=== PATIENT | male | born 1965 | race Caucasian/White ===

== ENCOUNTER → 2021-02-16 16:57 | Outpatient (CLI) | payer BC, SELFPAY ==
--- NOTE | 2021-02-16 17:00 | DI.RAD.S_ITS ---
PROCEDURE: XR FINGER LT MIN 2V INDICATIONS: Injury to left finger TECHNIQUE: AP hand, 2 views of the left 4th finger(s) acquired. COMPARISON: None. FINDINGS: Bones: No fractures or dislocations. No suspicious bony lesions. Soft tissues: No suspicious soft tissue calcifications. IMPRESSION: No evidence acute bony abnormality of the left 4th finger Dictated by: Alfredo Monterroso M.D. on 02/16/2021 at 17:25 Approved by: Alfredo Monterroso M.D. on 02/16/2021 at 17:32
== END ==
PROVIDERS: Referring Provider Physician Assistant; Visit Provider Physician Assistant
DX: S69.92XA Unspecified injury of left wrist, hand and finger(s), initial encounter (principal); X58.XXXA Exposure to other specified factors, initial encounter
CPT/HCPCS: 73140